=== PATIENT | female | born 1960 | race Caucasian/White ===

== ENCOUNTER 2017-03-08 21:45 | Observation (INO) | payer MEDICAID ==
--- NOTE | 2017-03-08 23:19 | EDM.PDOC ---
ED HPI GENERAL MEDICAL PROBLEM - General Chief Complaint: Syncope Stated Complaint: Syncope Time Seen by Provider: 03/08/17 21:50 Source of Information: Reports: Patient, Family History Limitations: Reports: No Limitations - History of Present Illness INITIAL COMMENTS - FREE TEXT/NARRATIVE: Patient is a 57 year old woman with a history of cardiomegaly and ventricular fibrillaation with a implantable defibulator who at 2100 tonight fainted 3 times. No chest pain or shortness of breath but she has had a cold treated with amoxicillin and Robitussin with Codeine. She feels tired and she has a cough but she has no fever or chills or other complaints. Onset: Today, Sudden Onset Date: 03/08/17 Duration: Resolved Prior to Arrival Location: Reports: Generalized Quality: Reports: Same as Previous Episode Severity: Mild Improves with: Reports: None Worsens with: Reports: None Context: Reports: Other (History of Implantable Defibrillator. Has never fainted before.) Associated Symptoms: Reports: No Other Symptoms - Related Data Allergies Allergy/AdvReac Type Severity Reaction Status Date / Time lactose Allergy Nausea and Verified 03/23/16 10:38 Vomiting Latex, Natural Rubber Allergy Rash Verified 03/23/16 10:38 morphine Allergy Anaphylactic Verified 03/23/16 10:38 Shock venom-honey bee Allergy Difficulty Verified 03/23/16 10:38 [bee venom (honey bee)] Swallowing Home Meds: Home Meds Carvedilol [Coreg] 6.25 mg PO BID 07/06/13 [History] Furosemide [Lasix] 20 mg PO DAILY 07/06/13 [History] Lisinopril 5 mg PO DAILY 07/06/13 [History] Aspirin [Lo Chewable] 81 mg PO DAILY 10/28/13 [History] atorvaSTATin Calcium [Atorvastatin Calcium] 40 mg PO QPM 03/23/16 [History] Past Medical History - Past Health History Medical/Surgical History: Denies Medical/Surgical History HEENT History: Reports: Impaired Vision, Other (See Below) Other HEENT History: glasses Cardiovascular History: Reports: Arrhythmia, Pacemaker, Other (See Below) Other Cardiovascular History: AICD and pacemaker inserted 2013 Respiratory History: Reports: Sleep Apnea Gastrointestinal History: Reports: GERD 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: Musculoskeletal History: Reports: Arthritis, Back Pain, Chronic Endocrine/Metabolic History: Reports: Vitamin D Deficiency - Infectious Disease History Infectious Disease History: Reports: Chicken Pox, Influenza - Past Surgical History Cardiovascular Surgical History: Reports: AICD GI Surgical History: Reports: Colonoscopy Female Surgical History: Reports: Hysterectomy Musculoskeletal Surgical History: Reports: Arthroscopic Knee, Arthroscopic Procedure, Other (See Below) Social & Family History - Family History Family Medical History: Noncontributory - Tobacco Use Smoking Status *Q: Former Smoker Years of Tobacco use: 30 Packs/Tins Daily: 1 Used Tobacco, but Quit: Yes Month Tobacco Last Used: february Second Hand Smoke Exposure: No - Caffeine Use Caffeine Use: Reports: Coffee Other Caffeine Use: 2 cups coffee in am - Alcohol Use Days Per Week of Alcohol Use: 4 Number of Drinks Per Day: 1 Total Drinks Per Week: 4 Date of Last Drink: 03/08/17 Time of Last Drink: 15:00 - Recreational Drug Use Recreational Drug Use: No ED ROS GENERAL - Review of Systems Review Of Systems: See Below Constitutional: Reports: Other (Syncope x 3.) HEENT: Reports: No Symptoms Respiratory: Reports: No Symptoms Cardiovascular: Reports: No Symptoms Endocrine: Reports: No Symptoms GI/Abdominal: Reports: No Symptoms Musculoskeletal: Reports: No Symptoms Skin: Reports: No Symptoms Neurological: Reports: No Symptoms, Dizziness, Syncope Psychiatric: Reports: No Symptoms Hematologic/Lymphatic: Reports: No Symptoms Immunologic: Reports: No Symptoms - Physical Exam Exam: See Below Exam Limited By: No Limitations General Appearance: Alert, WD/WN, No Apparent Distress Eye Exam: Bilateral Eye: EOMI, Normal Fundi, Normal Inspection Ears: Normal External Exam Nose: Normal Inspection, Normal Mucosa, No Blood Throat/Mouth: Normal Inspection, Normal Lips, Normal Teeth, Normal Gums, Normal Oropharynx, Normal Voice, No Airway Compromise Head Exam: Atraumatic, Normocephalic Neck: Normal Inspection Respiratory/Chest: No Respiratory Distress, Lungs Clear, Normal Breath Sounds, No Accessory Muscle Use, Chest Non-Tender Cardiovascular: Normal Peripheral Pulses, Regular Rate, Rhythm, No Edema, No Gallop, No JVD, No Murmur, No Rub GI/Abdominal: Normal Bowel Sounds, Soft, Non-Tender, No Organomegaly, No Distention, No Abnormal Bruit, No Mass (Female) Exam: Normal External Exam, Normal Speculum Exam, Normal Bimanual Exam Neuro Exam (Abbreviated): Alert, Oriented, CN II-XII Intact, Normal Cognition, Normal Gait, Normal Reflexes, No Motor/Sensory Deficits Extremities: Normal Inspection, Normal Range of Motion, Non-Tender, No Pedal Edema, Normal Capillary Refill Psychiatric: Normal Affect, Normal Mood Skin Exam: Warm, Dry, Intact, Normal Color, No Rash EKG INTERPRETATION EKG Date: 03/08/17 Rhythm: Other (Pace rhythm at 90 bpm.) Newell: LAD-Left Newell Deviation P-Wave: Variable ST-T: Normal QT: Normal Course - Vital Signs Text/Narrative:: Uneventful ED course. Labs were all normal. CXR shows ICD. No signs it went off. 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 Continue her home meds. Patient is a fulll code. Last Recorded V/S: Last Vital Signs Temp 36.6 C 03/08/17 21:50 Pulse 76 03/08/17 21:50 Resp 18 03/08/17 21:50 BP 106/56 L 03/08/17 21:50 Pulse Ox 98 03/08/17 21:50 - Orders/Labs/Meds Orders: Active Orders 24 hr Category Date Time Status Chest 1V Frontal [CR] Stat Exams 03/08/17 Taken Labs: Laboratory Tests 03/08/17 03/08/17 Range/Units 21:50 21:50 WBC 11.5 H D (4.0-11.0) K/uL RBC 3.93 (3.80-5.80) M/uL Hgb 12.0 (11.5-16.5) g/dL Hct 36.0 L (37.0-47.0) % MCV 92 (76-96) fL MCH 30.5 (27.0-32.0) pg MCHC 33.3 (31.0-35.0) g/dL RDW 13.2 (11.0-16.0) % Plt Count 336 (150-500) K/uL MPV 9.1 (6.0-10.0) fL Neut % (Auto) 62.4 (45.0-70.0) % Lymph % (Auto) 24.8 (20.0-40.0) % [place] % (Auto) 8.8 (3.0-10.0) % Eos % (Auto) 3.7 (1.0-5.0) % Baso % (Auto) 0.3 (0.0-0.5) % Neut # (Auto) 7.15 (2.00-7.50) K/uL Lymph # (Auto) 2.85 (1.50-4.00) K/uL [place] # (Auto) 1.01 H (0.20-0.80) K/uL Eos # (Auto) 0.43 H (0.04-0.40) K/uL Baso # (Auto) 0.03 (0.02-0.10) K/uL Sodium 139 (136-145) mmol/L Potassium 4.2 (3.5-5.1) mmol/L Chloride 101 (98-107) mmol/L Carbon Dioxide 28.5 (21.0-32.0) mmol/L Anion Gap 13.7 (5.0-15.0) mmol/L BUN 19 D (8-26) mg/dL Creatinine 1.01 (0.55-1.02) mg/dL Est Cr Clr Drug Dosing TNP Estimated GFR (MDRD) 56 L (>60) MLS/MIN BUN/Creatinine Ratio 18.8 (6-25) Glucose 92 (74-100) mg/dL Calcium 8.7 (8.5-10.1) mg/dL Total Bilirubin 0.3 (0.0-1.0) mg/dL AST 19 (15-37) U/L ALT 32 (12-78) U/L Alkaline Phosphatase 114 (46-116) U/L Troponin I < 0.017 (0.000-0.060) ng/mL Total Protein 7.6 (6.4-8.2) g/dL Albumin 3.8 (3.4-5.0) g/dL Globulin 3.8 (2.2-4.2) g/dL Albumin/Globulin Ratio 1.0 (0.8-2.0) Departure - Departure Time of Disposition: 23:27 Disposition: Refer to Observation Condition: Good Clinical Impression: Syncope and collapse - Discharge Information - My Orders Last 24 Hours: My Active Orders 03/08/17 Chest 1V Frontal [CR] Stat - Assessment/Plan Last 24 Hours: My Active Orders 03/08/17 Chest 1V Frontal [CR] Stat
[2017-03-09] MEDS: Sodium Chloride 0.9% 1,000 ML IV SCH ×2 (01:25→09:10)
[2017-03-09] MEDS ORDERED: Lisinopril 5 MG Tab**OWN MED PO SCH (10:00)
[2017-03-09] MEDS ORDERED: Furosemide 20 MG Tab**OWN MED PO SCH (10:00)
[2017-03-09] MEDS ORDERED: Carvedilol 6.25 MG Tab**OWN MED PO SCH (10:00)
[2017-03-09] MEDS ORDERED: Aspirin 81 MG Tab.Chew**OWN MED PO SCH (10:00)
--- NOTE | 2017-03-09 13:14 | PCM.DCSUM1 ---
Discharge Summary - Hospital Course HPI Initial Comments: Admitted for Syncope. Brief History: Admitted for syncopal episodes times 3. She has an implantable defibrillator. - Discharge Data Discharge Date: 03/09/17 Discharge Disposition: Home, Self-Care 01 Condition: Good - Patient Summary/Data Complications: None Recommended Follow-up Testing/Procedures: Recommended to see PCP in clinic on Friday in 2 days. Continue same meds, push fluids and return to ED if problems arise before seeing PCP. 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 - Discharge Plan Home Medications: Home Meds Carvedilol [Coreg] 6.25 mg PO BID 07/06/13 [History] Furosemide [Lasix] 20 mg PO DAILY 07/06/13 [History] Lisinopril 5 mg PO DAILY 07/06/13 [History] Aspirin [Lo Chewable] 81 mg PO DAILY 10/28/13 [History] atorvaSTATin Calcium [Atorvastatin Calcium] 40 mg PO QPM 03/23/16 [History] Forms: ED Department Discharge Referrals: PCP,None [Primary Care Provider] - - General Info Date of Service: 03/09/17 Admission Dx/Problem (Free Text: Patient was admitted for syncopal episodes x three. Her observation was uneventful and the pacemaker, defibrillator showed no evidence of arrhythmia causing the syncope. Head CT was negative and all the labs were good. Functional Status: Reports: Pain Controlled - Review of Systems General: Reports: Weakness HEENT: Reports: No Symptoms Pulmonary: Reports: No Symptoms Cardiovascular: Reports: No Symptoms Gastrointestinal: Reports: No Symptoms Genitourinary: Reports: No Symptoms Musculoskeletal: Reports: No Symptoms Skin: Reports: No Symptoms Neurological: Reports: No Symptoms Psychiatric: Reports: No Symptoms - Patient Data Vitals - Most Recent: Last Vital Signs Temp 36.3 C 03/09/17 08:00 Pulse 81 03/09/17 10:00 Resp 20 03/09/17 08:00 BP 110/87 03/09/17 10:00 Pulse Ox 99 03/09/17 08:00 Weight - Most Recent: 61.235 kg I&O - Last 24 hours: Intake & Output 03/08/17 03/09/17 03/09/17 22:59 06:59 14:59 Intake Total 916 Output Total 500 Balance 416 Lab Results - Last 24 hrs: Laboratory Results - last 24 hr 03/09/17 03/09/17 Range/Units 09:25 09:25 WBC 8.5 D (4.0-11.0) K/uL RBC 3.60 L (3.80-5.80) M/uL Hgb 11.0 L (11.5-16.5) g/dL Hct 33.8 L (37.0-47.0) % MCV 94 (76-96) fL MCH 30.6 (27.0-32.0) pg MCHC 32.5 (31.0-35.0) g/dL RDW 13.6 (11.0-16.0) % Plt Count 308 (150-500) K/uL MPV 9.1 (6.0-10.0) fL Neut % (Auto) 61.3 (45.0-70.0) % Lymph % (Auto) 24.9 (20.0-40.0) % [place] % (Auto) 9.9 (3.0-10.0) % Eos % (Auto) 3.7 (1.0-5.0) % Baso % (Auto) 0.2 (0.0-0.5) % Neut # (Auto) 5.21 (2.00-7.50) K/uL Lymph # (Auto) 2.11 (1.50-4.00) K/uL [place] # (Auto) 0.84 H (0.20-0.80) K/uL Eos # (Auto) 0.31 (0.04-0.40) K/uL Baso # (Auto) 0.02 (0.02-0.10) K/uL Sodium 143 (136-145) mmol/L Potassium 3.8 (3.5-5.1) mmol/L Chloride 106 (98-107) mmol/L Carbon Dioxide 30.8 (21.0-32.0) mmol/L Anion Gap 10.0 (5.0-15.0) mmol/L BUN 17 (8-26) mg/dL Creatinine 0.83 (0.55-1.02) mg/dL Est Cr Clr Drug Dosing 52.42 mL/min Estimated GFR (MDRD) > 60 (>60) MLS/MIN BUN/Creatinine Ratio 20.5 (6-25) Glucose 110 H (74-100) mg/dL Calcium 8.6 (8.5-10.1) mg/dL Total Bilirubin 0.4 D (0.0-1.0) mg/dL AST 16 (15-37) U/L ALT 27 (12-78) U/L Alkaline Phosphatase 103 (46-116) U/L Troponin I < 0.017 (0.000-0.060) ng/mL Total Protein 6.6 (6.4-8.2) g/dL Albumin 3.3 L (3.4-5.0) g/dL Globulin 3.3 (2.2-4.2) g/dL Albumin/Globulin Ratio 1.0 (0.8-2.0) Med Orders - Current: Current Medications Aspirin (Aspirin) 81 mg PO DAILY [facility] Last Admin: 03/09/17 10:00 Dose: 81 mg Atorvastatin Calcium (Lipitor) 40 mg PO BEDTIME [facility], [facility]1983 Carvedilol (Coreg) 6.25 mg PO BID [facility] Last Admin: 03/09/17 10:00 Dose: 6.25 mg Furosemide (Lasix) 20 mg PO DAILY [facility] Last Admin: 03/09/17 10:00 Dose: 20 mg Sodium Chloride (Normal Saline) 1,000 mls @ 125 mls/hr IV ASDIRECTED [facility], 1928–1983 Last Admin: 03/09/17 09:10 Dose: 125 mls/hr Lisinopril (Prinivil) 5 mg PO DAILY [facility] Last Admin: 03/09/17 10:00 Dose: 5 mg - Exam General: Reports: Alert, Oriented HEENT: Reports: Pupils Equal, Pupils Reactive, EOMI, Mucous Membr. Moist/[place] Neck: Reports: Supple Lungs: Reports: Clear to Auscultation, Normal Respiratory Effort Cardiovascular: Reports: Regular Rate, Regular Rhythm GI/Abdominal Exam: Normal Bowel Sounds, Soft, Non-Tender, No Organomegaly, No Distention, No Abnormal Bruit, No Mass, Pelvis Stable Back Exam: Reports: Normal Inspection, Full Range of Motion Extremities: Normal Inspection, Normal Range of Motion, Non-Tender, No Pedal Edema, Normal Capillary Refill Skin: Reports: Warm, Dry, Intact Wound/Incisions: Reports: Healing Well Neurological: Reports: No New Focal Deficit Psy/Mental Status: Reports: Alert, Normal Affect, Normal Mood *Q Meaningful Use (DIS) - VTE *Q VTE Criteria *Q: - Stroke *Q Stroke Criteria *Q: - AMI *Q AMI Criteria *Q:
[2017-03-09 13:18] VITALS: BP 117/56
[2017-03-09] MEDS ORDERED: atorvaSTATin 40 MG Tab**OWN MED PO SCH (20:00)
--- NOTE | 2017-03-10 20:15 | CR ---
DATE OF SERVICE: 03/08/2017 CLINICAL DATA: CHEST PAIN. AP PORTABLE CHEST: Comparison is made to a prior exam dated 10/28/2013. There is a cardiac pacer overlying the left chest and the distal pacer wires are in the region of the right atrium and right ventricle. The heart size is normal. There is calcification of the aortic arch. The lungs are clear. The exam is otherwise unremarkable. IMPRESSION: No evidence of acute intrathoracic disease. [id number] [facility]
--- NOTE | 2017-03-10 20:18 | CT ---
DATE OF SERVICE: 11/07/2016 CLINICAL DATA: R/O evidence of seizure activity. UNENHANCED BRAIN CT: Multislice acquisition through the brain without IV contrast was performed. Comparison is made to a prior exam dated 01/31/2012. No masses or mass effect. No intracranial hemorrhage. No evidence of acute or subacute infarct. No osseous abnormalities. IMPRESSION: Normal exam. [id number] [facility]
== END 2017-03-09 14:50 | disposition home or self-care (01) ==
LOC: LB.ED 21:45 → LB.MS 23:15 → UNDOADMOB 23:15 → LB.MS 03-09 00:31 → UNDODISOB 03-09 14:50
PROVIDERS: ADMIT Family Medicine; ATTEND Family Medicine
DX: R55 Syncope and collapse (principal); I49.01 Ventricular fibrillation; K21.9 Gastro-esophageal reflux disease without esophagitis; G47.30 Sleep apnea, unspecified; I51.7 Cardiomegaly; Z88.5 Allergy status to narcotic agent; Z87.891 Personal history of nicotine dependence; Z79.82 Long term (current) use of aspirin; Z79.899 Other long term (current) drug therapy; Z91.011 Allergy to milk products; Z91.040 Latex allergy status; Z91.030 Bee allergy status; Z95.810 Presence of automatic (implantable) cardiac defibrillator; Z90.710 Acquired absence of both cervix and uterus; Z98.890 Other specified postprocedural states
CPT/HCPCS: 36415; 70450; 71010; 80053; 84484; 85025; 87070; 93005; 96360; 96361; 99285; A9270; G0378; J7040

== ENCOUNTER 2017-11-23 16:09 | Emergency (ER) | payer MEDICAID ==
[2017-11-23] MEDS ORDERED: Promethazine 25 MG/ML SDV ONE ×2 (16:34→16:41)
[2017-11-23] MEDS ORDERED: Ketorolac 30 MG/ML SDV ONE ×2 (16:34→16:40)
--- NOTE | 2017-11-23 16:40 | EDM.PDOC ---
ED HPI GENERAL MEDICAL PROBLEM - General Chief Complaint: General Stated Complaint: headache Time Seen by Provider: 11/23/17 16:15 Source of Information: Reports: Patient History Limitations: Reports: No Limitations - History of Present Illness INITIAL COMMENTS - FREE TEXT/NARRATIVE: According to patient she claims she has had headache which has been going on for past 1 wk now. Headache s all over the head. Light and sound bother with the headache. It is waxing and waning type. Also c/o pain to pressure over the head and the back of her neck. Today it has got worse. Has been nauseous for past 1 wk. No blurry vision, vertigo. weakness. tingling or numbness. Duration: Week(s): (1) Location: Reports: Head Quality: Reports: Ache Severity: Moderate Associated Symptoms: Reports: Headaches, Nausea/Vomiting. Denies: Confusion, Chest Pain, Cough, Diaphoresis, Fever/Chills, Loss of Appetite, Rash, Seizure, Shortness of Breath, Syncope, Weakness - Related Data Allergies Allergy/AdvReac Type Severity Reaction Status Date / Time lactose Allergy Nausea and Verified 11/23/17 16:18 Vomiting Latex, Natural Rubber Allergy Rash Verified 11/23/17 16:18 morphine Allergy Anaphylactic Verified 11/23/17 16:18 Shock venom-honey bee Allergy Difficulty Verified 11/23/17 16:18 [bee venom (honey bee)] Swallowing Home Meds: Home Meds Carvedilol [Coreg] 6.25 mg PO BID 07/06/13 [History] Furosemide [Lasix] 20 mg PO DAILY PRN 07/06/13 [History] Lisinopril 5 mg PO DAILY 07/06/13 [History] Aspirin [Lo Chewable] 81 mg PO DAILY 10/28/13 [History] atorvaSTATin Calcium [Atorvastatin Calcium] 40 mg PO QPM 03/23/16 [History] Past Medical History - Past Health History Medical/Surgical History: Denies Medical/Surgical History HEENT History: Reports: Impaired Vision, Other (See Below) Other HEENT History: glasses Cardiovascular History: Reports: Arrhythmia, Pacemaker, Other (See Below) Other Cardiovascular History: AICD and pacemaker inserted 2013 Respiratory History: Reports: Sleep Apnea Gastrointestinal History: Reports: GERD 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: Musculoskeletal History: Reports: Arthritis, Back Pain, Chronic Endocrine/Metabolic History: Reports: Vitamin D Deficiency - Infectious Disease History Infectious Disease History: Reports: Chicken Pox, Influenza - Past Surgical History Cardiovascular Surgical History: Reports: AICD GI Surgical History: Reports: Colonoscopy Female Surgical History: Reports: Hysterectomy Musculoskeletal Surgical History: Reports: Arthroscopic Knee, Arthroscopic Procedure, Other (See Below) Social & Family History - Family History Family Medical History: Noncontributory - Caffeine Use Caffeine Use: Reports: Coffee Other Caffeine Use: 2 cups coffee in am ED ROS GENERAL - Review of Systems Review Of Systems: See Below Constitutional: Denies: Fever, Chills HEENT: Denies: Ear Pain, Nose Pain, Rhinitis, Throat Pain, Throat Swelling, Vertigo, Vision Change Respiratory: Denies: Shortness of Breath, Cough, Sputum Cardiovascular: Denies: Chest Pain, Lightheadedness GI/Abdominal: Reports: Flatus, Nausea. Denies: Abdominal Pain, Constipation, Diarrhea, Vomiting : Denies: Dysuria, Flank Pain Musculoskeletal: Denies: Joint Pain, Joint Swelling Skin: Denies: Bruising, Pruritis, Rash Neurological: Reports: Headache. Denies: Confusion, Dizziness, Numbness, Paresthesia, Seizure, Tingling, Difficulty Walking, Weakness, Change in Speech, Gait Disturbance ED EXAM, GENERAL - Physical Exam Exam: See Below Exam Limited By: No Limitations General Appearance: Alert, WD/WN, No Apparent Distress Eye Exam: Bilateral Eye: EOMI, PERRL Ears: Normal External Exam, Normal Canal, Hearing Grossly Normal, Normal TMs Ear Exam: Bilateral Ear: Auricle Normal, Canal Normal, TM normal Nose: Normal Inspection, Normal Mucosa, No Blood Throat/Mouth: Normal Inspection, Normal Lips, Normal Teeth, Normal Gums, Normal Oropharynx, Normal Voice, No Airway Compromise Head: Atraumatic, Normocephalic, Other (Pt is tender to palpation of the scalp over the fronto parietal region adn the nape of the neck. B/l) Neck: Normal Inspection, Supple, Non-Tender, Full Range of Motion Respiratory/Chest: No Respiratory Distress, Lungs Clear, Normal Breath Sounds, No Accessory Muscle Use, Chest Non-Tender Cardiovascular: Normal Peripheral Pulses, Regular Rate, Rhythm, No Edema, No Gallop, No JVD, No Murmur, No Rub GI/Abdominal: Normal Bowel Sounds, Soft, Non-Tender, No Organomegaly, No Distention, No Abnormal Bruit, No Mass Extremities: Normal Inspection, Normal Range of Motion, Non-Tender, Normal Capillary Refill, No Pedal Edema Neurological: Alert, Oriented, CN II-XII Intact, Normal Cognition, Normal Gait, Normal Reflexes, No Motor/Sensory Deficits Course - Vital Signs Text/Narrative:: Pt has had headache for past 1 wk now, which has gradually got worse. has been nauseous but no vomiting. She has palpable tenderness all over the scalp and the nape of the neck. Appears like stress headache.She did receive toradol 30mg IM with phenergan 25mg IM. Advised to go home and rest. Headache should gradually improve over the next 3- 4 hrs. If the headache worsens or is not resolved by morning, advised to return to clinic for further workup. - Orders/Labs/Meds Orders: Active Orders 24 hr Category Date Time Status Ketorolac [Toradol] Med 11/23/17 16:30 Once 30 mg IM ONETIME ONE Promethazine [Phenergan] Med 11/23/17 16:31 Once 25 mg IM ONETIME ONE Meds: Medications Discontinued Medications Generic Name Dose Route Start Last Admin Trade Name Mik PRN Reason Stop Dose Admin Ketorolac Tromethamine Confirm 11/23/17 16:34 Toradol Administered 11/23/17 16:35 Dose 30 mg .ROUTE .STK-MED ONE Promethazine HCl Confirm 11/23/17 16:34 Phenergan Administered 11/23/17 16:35 Dose 25 mg .ROUTE .STK-MED ONE Departure - Departure Time of Disposition: 16:45 Disposition: Home, Self-Care 01 Condition: Fair Clinical Impression: Tension headache - Discharge Information *PRESCRIPTION DRUG MONITORING PROGRAM REVIEWED*: Not Applicable *COPY OF PRESCRIPTION DRUG MONITORING REPORT IN PATIENT ELADIO: Not Applicable Referrals: PCP,None [Primary Care Provider] - Additional Instructions: She has palpable tenderness all over the scalp and the nape of the neck. Appears like stress headache.She did receive toradol 30mg IM with phenergan 25mg IM. Advised to go home and rest. Headache should gradually improve over the next 3- 4 hrs. If the headache worsens or is not resolved by morning, advised to return to clinic for further workup. - Problem List & Annotations (1) Tension headache SNOMED Code(s): 912908222 Code(s): G44.209 - TENSION-TYPE HEADACHE, UNSPECIFIED, NOT INTRACTABLE Status: Acute Current Visit: Yes - Problem List Review Problem List Initiated/Reviewed/Updated: Yes - My Orders Last 24 Hours: My Active Orders 11/23/17 16:30 Ketorolac [Toradol] 30 mg IM ONETIME ONE 11/23/17 16:31 Promethazine [Phenergan] 25 mg IM ONETIME ONE - Assessment/Plan Last 24 Hours: My Active Orders 11/23/17 16:30 Ketorolac [Toradol] 30 mg IM ONETIME ONE 11/23/17 16:31 Promethazine [Phenergan] 25 mg IM ONETIME ONE Assessment:: Tension headache Plan: She has palpable tenderness all over the scalp and the nape of the neck. Appears like stress headache.She did receive toradol 30mg IM with phenergan 25mg IM. Advised to go home and rest. Headache should gradually improve over the next 3- 4 hrs. If the headache worsens or is not resolved by morning, advised to return to clinic for further workup.
[2017-11-23] MEDS: Ketorolac 60 MG/2 ML SDV IM ONE (16:41)
[2017-11-23] MEDS: Promethazine 25 MG/ML SDV IM ONE (16:42)
[2017-11-23 16:52] VITALS: BP 125/77
== END 2017-11-23 16:45 | disposition home or self-care (01) ==
LOC: LB.ED 16:09
DX: G44.209 Tension-type headache, unspecified, not intractable (principal); Z91.040 Latex allergy status; Z91.030 Bee allergy status; Z88.5 Allergy status to narcotic agent
CPT/HCPCS: 96372; 99283-25; J1885; J2550

== ENCOUNTER 2018-08-17 05:25 | Emergency (ER) | payer MEDICAID ==
[2018-08-17 05:43] VITALS: BP 138/85
[2018-08-17] MEDS ORDERED: Albuterol/Ipratropium 3.0-0.5 MG/3 ML Neb Soln NEB PRN (05:43)
[2018-08-17] MEDS ORDERED: predniSONE 10 MG Tab ONE (06:00)
[2018-08-17] MEDS ORDERED: Albuterol/Ipratropium 3.0-0.5 MG/3 ML Neb Soln ONE (06:00)
[2018-08-17] MEDS ORDERED: Levofloxacin 250 MG/10 ML Soln ML PO SCH ×2 (06:08→08:00)
[2018-08-17] MEDS ORDERED: Levofloxacin 500 MG Tab PO ONE (06:10)
--- NOTE | 2018-08-17 06:37 | EDM.PDOC ---
ED HPI GENERAL MEDICAL PROBLEM - General Chief Complaint: Respiratory Problem Stated Complaint: trouble breathing Time Seen by Provider: 08/17/18 05:50 Source of Information: Reports: Patient, Family History Limitations: Reports: No Limitations - History of Present Illness INITIAL COMMENTS - FREE TEXT/NARRATIVE: This is a 58yo here for shortness of breath for the past week. She states she has been unable to fall asleep due to the difficulty breathing. She denies history of asthma but does have allergies to bee stings. She had an episode of shortness of breath at the end of June and did well after a course of antibiotics, prednisone and cough suppressant. She states her sinuses have been bothering her as well during these breathing episodes. She had some issues with pollen or environmental allergies and did notice issues last year but did not need any medical treatment. Her notes that they can see all the pollen floating in the air. Onset: Gradual Duration: Day(s): Location: Reports: Generalized Severity: Moderate Improves with: Reports: None Worsens with: Reports: Movement Associated Symptoms: Reports: Shortness of Breath - Related Data Allergies Allergy/AdvReac Type Severity Reaction Status Date / Time lactose Allergy Nausea and Verified 08/17/18 05:43 Vomiting Latex, Natural Rubber Allergy Rash Verified 08/17/18 05:43 morphine Allergy Anaphylactic Verified 08/17/18 05:43 Shock venom-honey bee Allergy Difficulty Verified 08/17/18 05:43 [bee venom (honey bee)] Swallowing Home Meds: Home Meds Carvedilol [Coreg] 6.25 mg PO BID 07/06/13 [History] Furosemide [Lasix] 20 mg PO DAILY PRN 07/06/13 [History] Lisinopril 5 mg PO DAILY 07/06/13 [History] Aspirin [Lo Chewable] 81 mg PO DAILY 10/28/13 [History] atorvaSTATin Calcium [Atorvastatin Calcium] 40 mg PO QPM 03/23/16 [History] Past Medical History - Past Health History Medical/Surgical History: Denies Medical/Surgical History HEENT History: Reports: Impaired Vision, Other (See Below) Other HEENT History: glasses Cardiovascular History: Reports: Arrhythmia, Pacemaker, Other (See Below) Other Cardiovascular History: AICD and pacemaker inserted 2013 Respiratory History: Reports: Sleep Apnea Gastrointestinal History: Reports: GERD [employer] History: Reports: Musculoskeletal History: Reports: Arthritis, Back Pain, Chronic Endocrine/Metabolic History: Reports: Vitamin D Deficiency - Infectious Disease History Infectious Disease History: Reports: Chicken Pox, Influenza - Past Surgical History Cardiovascular Surgical History: Reports: AICD GI Surgical History: Reports: Colonoscopy Female Surgical History: Reports: Hysterectomy Musculoskeletal Surgical History: Reports: Arthroscopic Knee, Arthroscopic Procedure, Other (See Below) Social & Family History - Family History Family Medical History: Noncontributory - Caffeine Use Caffeine Use: Reports: Coffee Other Caffeine Use: 2 cups coffee in am ED ROS GENERAL - Review of Systems Review Of Systems: ROS reveals no pertinent complaints other than HPI. ED EXAM, GENERAL - Physical Exam Exam: See Below Exam Limited By: No Limitations General Appearance: Alert, WD/WN, Mild Distress Eye Exam: Bilateral Eye: EOMI, PERRL Ears: Normal External Exam Nose: Normal Inspection Throat/Mouth: Normal Inspection Head: Atraumatic, Normocephalic Neck: Normal Inspection Respiratory/Chest: Wheezing Cardiovascular: Normal Peripheral Pulses, Regular Rate, Rhythm Peripheral Pulses: 2+: Dorsalis Pedis (L), Dorsalis Pedis (R) GI/Abdominal: Normal Bowel Sounds, Soft, Non-Tender Extremities: Normal Inspection Neurological: Alert, Oriented, CN II-XII Intact Psychiatric: Normal Affect, Normal Mood Skin Exam: Warm, Dry, Intact Course - Vital Signs Last Recorded V/S: Last Vital Signs Temp 37.1 C 08/17/18 05:36 Pulse 106 H 08/17/18 05:36 Resp 22 H 08/17/18 05:36 BP 138/85 08/17/18 05:36 Pulse Ox 98 08/17/18 05:36 - Orders/Labs/Meds Orders: Active Orders 24 hr Category Date Time Status Albuterol/Ipratropium [DuoNeb 3.0-0.5 MG/3 ML] Med 08/17/18 05:43 Active 3 ml NEB Q2H PRN Medication Orders Albuterol/Ipratropium (Duoneb 3.0-0.5 Mg/3 Ml) 3 ml NEB Q2H PRN PRN Reason: Wheezing Last Admin: 08/17/18 05:54 Dose: 3 ml Meds: Medications Generic Name Dose Route Start Last Admin Trade Name Freq PRN Reason Stop Dose Admin Albuterol/Ipratropium 3 ml 08/17/18 05:43 08/17/18 05:54 Duoneb 3.0-0.5 Mg/3 Ml NEB 3 ml Q2H PRN Administration Wheezing Discontinued Medications Generic Name Dose Route Start Last Admin Trade Name Mik PRN Reason Stop Dose Admin Levofloxacin 750 mg 08/17/18 08:00 Levaquin PO DAILY SVETLANA Levofloxacin 750 mg 08/17/18 06:08 Levaquin PO DAILY SVETLANA Levofloxacin 750 mg 08/17/18 06:10 08/17/18 06:11 Levaquin PO 08/17/18 06:11 750 mg ONETIME ONE Administration Departure - Departure Time of Disposition: 06:10 Disposition: Home, Self-Care 01 Condition: Good Clinical Impression: Acute asthma - Discharge Information Instructions: Asthma, Adult, Fluticasone; Vilanterol inhalation powder, Preventing Asthma Attacks From Outdoor Allergens, Teen, How to Use a Nebulizer, Adult, Metered Dose Inhaler (No Spacer Used), Prednisone tablets, Asthma Attack Prevention, Adult Forms: ED Department Discharge Additional Instructions: Take the prescribed medications as directed. Use the nebulizer (Duoneb) at home every 4 hours as needed for the wheezing and trouble breathing. Use the Breo once a day for the next 13 days. Prednisone tapering dose was started in the ER and the remaining doses will be picked up from the pharmacy. The antibiotic (Levoquin) will also be picked up at the pharmacy. Followup in 1-2 weeks unless you need to be seen sooner. - Problem List & Annotations (1) Allergic asthma SNOMED Code(s): 456726866, 915571093 Code(s): J45.909 - UNSPECIFIED ASTHMA, UNCOMPLICATED Status: Acute Qualifiers: Asthma persistence: intermittent Asthma complication type: with acute exacerbation - Problem List Review Problem List Initiated/Reviewed/Updated: Yes - My Orders Last 24 Hours: My Active Orders 08/17/18 05:43 Albuterol/Ipratropium [DuoNeb 3.0-0.5 MG/3 ML] 3 ml NEB Q2H PRN - Assessment/Plan Last 24 Hours: My Active Orders 08/17/18 05:43 Albuterol/Ipratropium [DuoNeb 3.0-0.5 MG/3 ML] 3 ml NEB Q2H PRN Plan: Counseled on antibiotics use, prednisone, and duoneb with BREO. Discussed side effects and further management if symptoms persist or worsen. Discussed f/u in clinic in 1-2 wks and further management and studies as needed. F/u as directed.
== END 2018-08-17 06:19 | disposition home or self-care (01) ==
LOC: LB.ED 05:25
DX: J45.901 Unspecified asthma with (acute) exacerbation (principal); Z79.899 Other long term (current) drug therapy; Z88.5 Allergy status to narcotic agent; Z91.030 Bee allergy status; Z91.018 Allergy to other foods
CPT/HCPCS: 99284; A9270-GY; J7620-GY

== ENCOUNTER 2018-09-21 20:20 | Emergency (ER) | payer MEDICAID ==
[~2018-09-21 20:20] MED LIST: GI Cocktail Oral Solution 30 ML ONE
[2018-09-21] MEDS ORDERED: Aspirin 81 MG Tab.Chew PO ONE (20:52)
[2018-09-21] MEDS ORDERED: Sodium Chloride 0.9% 1,000 ML IV SCH (21:00)
[2018-09-21] MEDS ORDERED: Nitroglycerin 0.4 MG Tab.SL SL PRN (21:36)
[2018-09-21 21:38] VITALS: BP 140/101
[2018-09-21 22:56] VITALS: PULSE 116
--- NOTE | 2018-09-22 07:57 | ER ---
DATE OF SERVICE: 09/21/2018 REASON FOR EMERGENCY ROOM VISIT: Chest pain. HISTORY: This 58-year-old woman, with a history of nonischemic cardiomyopathy, a pacemaker and an AICD, presented to the ER this evening with a 1-hour history of crushing substernal chest pain radiating to the neck and accompanied by nausea, but minimal diaphoresis. She was not doing anything active at the time of the onset; however, she had 2 prior episodes over the past week or so, 1 occurring 3 or 4 days ago, in which, in the middle of night, she got up and subsequently experienced similar substernal chest pain that persisted for about 3 hours before she sat down and rested for a while, and it resolved. The second episode was 2 days ago, and it only lasted matter of a few minutes, but it was similar in character and not quite as severe. Prior to all of this, she does not have any clear history of chest pain with exertion. As mentioned above, she does have a history of cardiomyopathy, which is said to be nonischemic and she is being followed by her sales development consultant, Dr. Goldstein in [place] for this. She has had a heart cath and coronary angiogram in the past, but that was 9 years ago, according to the patient. The patient does take lisinopril and Lasix, but she states that she has never been told she has hypertension. She does have hypercholesterolemia. She is a nondiabetic and a nonsmoker. PAST MEDICAL HISTORY: 1. Pacemaker and AICD for 9 years. 2. History of asthma. 3. History of syncope, probably secondary to #1. 4. GERD. 5. Arrhythmia. 6. Hysterectomy (ovaries left intact). 7. Lumbar spine surgery. 8. Knee and shoulder orthopedic surgery. FAMILY HISTORY: Her father of a myocardial infarction between 65 and 70 years of age. Her mother of dementia. She has 1 daughter, who is from a drowning accident and 1 son, who is alive and well. She has 1 sister, who has a heart valve problem that is probably congenital, and as far as she knows, her 4 brothers are healthy. SOCIAL HISTORY: She is a nonsmoker. Occasionally drinks alcohol. 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 MEDICATIONS: Include: 1. Baby aspirin. 2. Lisinopril 5 mg p.o. daily. 3. Atorvastatin 40 mg p.o. daily. 4. Carvedilol 6.25 mg p.o. b.i.d. 5. Lasix 20 mg p.o. daily. ALLERGIES: TO MORPHINE (? ANAPHYLAXIS) AND BEE STINGS. REVIEW OF SYSTEMS: Pertinent positives and negatives as listed in the HPI. PHYSICAL EXAMINATION: VITAL SIGNS: On arrival, her heart rate was 110. Her blood pressure was 140/ 101, O2 sats were in the high 90s on room air, respiratory rate was 18. She is afebrile. GENERAL: She appears anxious and is complaining of chest pain. HEENT: No scleral icterus is noted. Oropharynx is normal. NECK: Supple. No bruits are audible. No JVD. CHEST: Clear to auscultation with good air exchange bilaterally. No wheezes, rhonchi, or rales. CARDIAC: I do not hear a murmur. Regular rate. No rub is noted. ABDOMEN: Soft, nontender, nondistended. No hepatosplenomegaly. EXTREMITIES: Normal pulses. No edema. LABORATORY DATA: The chest x-ray to me does show her pacemaker leads, but she does not have any cardiomegaly. Her EKG is difficult to interpret because it is a ventricular -paced rhythm. Her CBC is normal with normal white count and hemoglobin of 13. Her platelets are 300,000. Her CMP was unremarkable. Her troponin is normal. EMERGENCY ROOM COURSE: Upon admission, she was connected to a monitor, oxygen was administered. IVs were obtained and blood was drawn. She was given 4 baby aspirin and 1 nitroglycerin sublingual. Within a few minutes of receiving the sublingual, her pain went from a 10 down to a 3 and then to a 2. She did not receive morphine because of her history of possible anaphylaxis, but she really does not need it because of the remarkable relief with nitroglycerin. IMPRESSION: Possible unstable angina. No definite evidence of myocardial ischemia, however, her history makes me concerned about unstable angina situation. . PLAN: I discussed the patient's presentation and the above-mentioned findings with sales development consultant, Dr. Fajardo, as well as the hospitalist, Dr. Schmidt at [place]. We wanted to transfer because of our concerns of unstable angina. They both thought this was a sensible approach and accepted the transfer. She was transferred by helicopter. She remained stable throughout her emergency room course. She was starting to get a small amount of chest pain right before she departed. The patient is aware of the inherent risks of transfer, including accidents, etc. Both she and her agree with this plan. All questions were answered. She will be directly admitted under the care of the hospitalist, Dr. Schmidt, who will consult with Dr. Fajardo if indicated. LIZZETH/CONRADO /[id number] MTDKayleigh
--- NOTE | 2018-09-22 08:27 | CR ---
DATE OF SERVICE: 09/21/18 CLINICAL DATA: Chest Pain AP PORTABLE CHEST: Comparison is made to a prior exam dated 07/07/18. The cardiac pacer and pacer wires remain unchanged in position. The heart size is normal. There is calcification of the aortic arch. Lungs are clear. No pneumothorax. No pleural effusion. No evidence of acute intrathoracic disease. [id number] [facility]
== END 2018-09-21 22:00 ==
LOC: LB.ED 20:46
DX: R07.2 Precordial pain (principal); J45.909 Unspecified asthma, uncomplicated; Z88.8 Allergy status to other drugs, medicaments and biological substances; Z91.030 Bee allergy status; Z79.899 Other long term (current) drug therapy; Z95.0 Presence of cardiac pacemaker
CPT/HCPCS: 36415; 71045; 80053; 84484; 85025; 85379; 85610; 85730; 93005; 99285; A9270; J7030

== ENCOUNTER 2020-10-15 08:16 | Emergency (ER) | payer MEDICAID ==
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
--- NOTE | 2020-10-16 07:52 | CR ---
DATE OF SERVICE: 10/15/20 CLINICAL DATA: cough AP CHEST: Comparison is made to a prior exam dated 09/21/18. The cardiac pacer and pacer wires remain unchanged in position. The heart size is normal. There is calcification of the aortic arch. The lungs are clear. No pneumothorax. No pleural effusions. No evidence of acute intrathoracic disease. [id number]
== END 2020-10-15 09:50 | disposition home or self-care (01) ==
LOC: LB.ED 08:16
DX: J06.9 Acute upper respiratory infection, unspecified (principal); K21.9 Gastro-esophageal reflux disease without esophagitis; Z20.822 Contact with and (suspected) exposure to COVID-19; Z91.011 Allergy to milk products; Z91.040 Latex allergy status; Z91.030 Bee allergy status; Z88.5 Allergy status to narcotic agent; Z79.82 Long term (current) use of aspirin; Z79.899 Other long term (current) drug therapy; Z95.0 Presence of cardiac pacemaker
CPT/HCPCS: 36415; 71045; 80053; 85025; 99283-25; U0002

== ENCOUNTER 2024-01-22 08:34 | Emergency (ER) | payer MEDICARE ==
[2024-01-22] MEDS ORDERED: Sodium Chloride 0.9% 10 ML Syringe FLUSH PRN (09:02)
[2024-01-22] MEDS: Ketorolac 30 MG/ML SDV IVPUSH ONE (09:10)
[2024-01-22 09:11] LABS: BASOPHILS ABSOLUTE AUTO 0.03 K/uL (0.02-0.10); BASOPHILS PERCENT AUTO 0.4 % (0.0-0.5); EOSINOPHILS ABSOLUTE AUTO 0.18 K/uL (0.04-0.40); EOSINOPHILS PERCENT AUTO 2.5 % (1.0-5.0); HEMATOCRIT 38.8 % (37.0-47.0); HEMOGLOBIN 12.4 g/dL (11.5-16.5); LYMPHOCYTES ABSOLUTE AUTO 1.64 K/uL (1.50-4.00); LYMPHOCYTES PERCENT AUTO 22.7 % (20.0-40.0); MEAN CORPUSCULAR HEMOGLOBIN 30.5 pg (27.0-32.0); MEAN CORPUSCULAR VOLUME 95 fL (76-96); MEAN PLATELET VOLUME 9.1 fL (6.0-10.0); MONOCYTES ABSOLUTE AUTO 0.72 K/uL (0.20-0.80); NEUTROPHILS ABSOLUTE AUTO 4.65 K/uL (2.00-7.50); NEUTROPHILS PERCENT AUTO 64.4 % (45.0-70.0); PLATELET COUNT,PLT 339 K/uL (150-500); RED BLOOD CELL COUNT 4.07 M/uL (3.80-5.80); RED CELL DISTRIBUTION WIDTH 14.5 % (11.0-16.0); WHITE BLOOD CELL COUNT,WBC 7.2 K/uL (4.0-11.0)
[2024-01-22 09:19] LABS: A/G RATIO 1.1 (0.8-2.0); ALBUMIN 3.8 g/dL (3.4-5.0); ANION GAP 13.8 mmol/L (5.0-15.0); BILIRUBIN TOTAL 0.5 mg/dL (0.0-1.0); BUN/CREATININE RATIO 13.6 (6-25); CARBON DIOXIDE,CO2 29.2 mmol/L (21.0-32.0); CREATININE 0.81 mg/dL (0.55-1.02); EST CRCL DRUG DOSING (CG) 49.74 mL/min; PROTEIN TOTAL,TP 7.4 g/dL (6.4-8.2)
[2024-01-22 09:53] LABS: APPEARANCE,URINE CLEAR (CLEAR); BILIRUBIN,URINE NEGATIVE (NEGATIVE); COLOR,URINE YELLOW; GLUCOSE,URINE NEGATIVE (NEGATIVE); KETONES,URINE NEGATIVE (NEGATIVE); PROTEIN,URINE NEGATIVE (NEGATIVE)
[2024-01-22 09:54] LABS: LEUKOCYTE ESTERASE,URINE NEGATIVE (NEGATIVE); NITRITE,URINE NEGATIVE (NEGATIVE); OCCULT BLOOD,URINE SMALL (NEGATIVE); SQUAMOUS EPITHELIAL CELLS,UR FEW /HPF; UROBILINOGEN,URINE 0.2 E.U./dL (0.2-1.0); WBC,URINE NOT SEEN /HPF
[2024-01-22] MEDS: Sodium Chloride 0.9% 50 ML SDV FLUSH ONE (10:15)
[2024-01-22] MEDS: Iopamidol 612 MG/ML 100 ML Bottle IV SCH (10:15)
[2024-01-22 10:46] LABS: CALCIUM 9.5 mg/dL (8.5-10.1)
[2024-01-22] MEDS: Ketorolac 30 MG/ML SDV ONE (10:58)
[2024-01-22 13:41] VITALS: BP 122/75; PULSE 75
== END 2024-01-22 11:04 | disposition home or self-care (01) ==
LOC: LB.ED 08:34
DX: R10.11 Right upper quadrant pain (principal); E78.00 Pure hypercholesterolemia, unspecified; I10 Essential (primary) hypertension; J44.9 Chronic obstructive pulmonary disease, unspecified; M19.90 Unspecified osteoarthritis, unspecified site; Z95.0 Presence of cardiac pacemaker; Z79.82 Long term (current) use of aspirin; Z79.899 Other long term (current) drug therapy; Z88.5 Allergy status to narcotic agent; Z91.040 Latex allergy status; Z91.030 Bee allergy status; Z88.8 Allergy status to other drugs, medicaments and biological substances
CPT/HCPCS: 36415; 74177; 80053; 81001; 85025; 96374; 99284-25; J1885; J3490; Q9967